=== PATIENT | male | born 1945 | race Two or more races ===

== ENCOUNTER 2022-06-24 03:40 | Emergency (ER) | payer SELFPAY ==
[~2022-06-24] VITALS: Ht 174 cm; Wt 76.3 kg
[2022-06-24 03:42] VITALS: BP 124/80
[2022-06-24] MEDS ORDERED: CARB25TA18 PO (03:52)
[2022-06-24] MEDS ORDERED: LEXA1TAB2 PO (03:52)
[2022-06-24] MEDS ORDERED: BUPR300T92 PO (03:52)
[2022-06-24] MEDS ORDERED: GABA-1171 PO (03:52)
== END 2022-06-24 04:13 | disposition left against medical advice (07) ==
LOC: M ED 03:40
DX: Z53.29 Procedure and treatment not carried out because of patient's decision for other reasons (principal)